=== PATIENT | male | born 2000 | race Caucasian/White ===

== ENCOUNTER 2018-06-27 23:15 | Emergency (ER) | payer OTHER ==
--- NOTE | 2018-06-27 23:47 | RAD ---
2 views of the chest: 06/27/2018 COMPARISON: None HISTORY: Chest pain FINDINGS: Lungs are clear. Heart and mediastinal contours appear within normal limits. IMPRESSION: No acute findings.
[2018-06-27 23:49] LABS: #Basophils 0.1 thou/uL (0.0-0.2); #Eosinphils 0.1 thou/uL (0.0-0.7); #Lymphocytes 3.1 thou/uL (1.20-3.40); #Monocytes 0.7 thou/uL (0.11-0.59); #Neutrophils 3.9 thou/uL (1.40-6.50); %Basophils 0.9 % (0.0-1.0); %Eosinophils 1.7 % (0.0-10.0); %Lymphocytes 38.6 % (28.0-48.0); %Monocytes 9.2 % (0.0-4.0); %Neutrophils 49.6 % (31.0-61.0); Hemoglobin 16.2 g/dL (14.0-18.0); Mean Corpuscular Hemoglobin 30.2 pg (25.0-35.0); Mean Corpuscular Volume 86.4 fL (78.0-98.0); Mean Platelet Volume 9.4 fL (7.4-10.4); Platelet Count 295 thou/uL (130-400); RBC Distribution Width 11.1 % (11.5-14.5); Red Blood Cell (RBC) Count 5.37 mill/uL (4.00-5.20); White Blood Cell (WBC) Count 7.9 thou/uL (4.8-10.8)
[2018-06-28 00:29] LABS: ALT (SGPT) 50 U/L (8-55); AST (SGOT) 31 U/L (10-45); Albumin 4.9 g/dL (3.5-5.0); Alkaline Phosphatase 47 U/L (Less than 750); Anion Gap 18 mmol/L (10-20); BUN (Urea Nitrogen) 15 mg/dL (8.4-21.0); Bilirubin, Total 1.3 mg/dL (0.2-1.2); CK (CPK) 128 U/L (30-200); Calc. Creatinine Clearance 0 mL/min (70-130); Calcium 10.1 mg/dL (7.8-10.44); Carbon Dioxide 21 mmol/L (22-29); Chloride 104 mmol/L (98-107); Estimated GFR-MDRD Greater than 90; Globulin 3.3 g/dL (2.4-3.5); Glucose 132 mg/dL (70-105); Potassium 3.9 mmol/L (3.5-5.1); Protein, Total 8.2 g/dL (6.0-8.3); Sodium 139 mmol/L (136-145)
--- NOTE | 2018-06-29 11:32 | EKG ---
Test Reason : Blood Pressure : / mmHG Vent. Rate : 132 BPM Atrial Rate : 132 BPM P-R Int : 146 ms QRS Dur : 092 ms QT Int : 304 ms P-R-T Axes : 053 035 033 degrees QTc Int : 450 ms Sinus tachycardia Possible Left atrial enlargement Cannot rule out Anterior infarct , age undetermined Abnormal ECG Confirmed by DR. Chidi HENDRICKS ([id number]) on 06/29/2018 11:31:42 AM Referred By: Confirmed By:DR. Chidi HENDRICKS
== END 2018-06-28 01:52 | disposition home or self-care (01) ==
LOC: ERS 23:15
DX: F41.1 Generalized anxiety disorder (principal)
CPT/HCPCS: 71046; 80053; 82550; 84484; 85025; 85379; 93005; 96360; 96361